=== PATIENT | male | born 1950 ===

== ENCOUNTER → 2025-03-24 10:16 | Outpatient (REF) | payer MEDICARE, SELFPAY | LOC: RAD 10:16 | PROVIDERS: ATTENDING PHYSICIAN Internal Medicine Cardiovascular Disease | DX: R06.09 Other forms of dyspnea (principal); I44.7 Left bundle-branch block, unspecified; I49.5 Sick sinus syndrome; E78.00 Pure hypercholesterolemia, unspecified; E78.5 Hyperlipidemia, unspecified; I34.0 Nonrheumatic mitral (valve) insufficiency; Z95.0 Presence of cardiac pacemaker | CPT/HCPCS: 75574; Q9967 ==